=== PATIENT | female | born 1960 | race Caucasian/White ===

== ENCOUNTER → 2020-07-26 | Outpatient (CLI) | payer OTHER | LOC: M.CT 08:58 | PROVIDERS: ATTEND Family Medicine | DX: R63.4 Abnormal weight loss (principal); R73.03 Prediabetes; R80.9 Proteinuria, unspecified; N39.0 Urinary tract infection, site not specified; G35 Multiple sclerosis; Z87.891 Personal history of nicotine dependence; Z85.820 Personal history of malignant melanoma of skin; Z68.29 Body mass index [BMI] 29.0-29.9, adult ==

== ENCOUNTER 2020-08-17 18:52 | Inpatient (IN) | payer OTHER ==
[2020-08-17] VITALS (9 sets, daily range): BP systolic 110–143; BP diastolic 67–94
[~2020-08-17] VITALS: Ht 165.1 cm; Wt 74.4 kg
[2020-08-17] MEDS ORDERED: LIPITOR 20 MG T20 M1 PO (19:02)
[2020-08-17] MEDS ORDERED: VITAMIN D21250 MCG PO (19:03)
[2020-08-17 19:20] LABS: ABSOLUTE BASOPHILS 0.1 thou/uL (0.0-0.2); ABSOLUTE EOSINOPHILS 0.3 thou/uL (0.0-0.7); ABSOLUTE LYMPHOCYTES 2.5 thou/uL (0.8-5.3); ABSOLUTE MONOCYTES 0.5 thou/uL (0.0-1.2); ABSOLUTE NEUTROPHILS 4.6 thou/uL (1.6-8.1); BASOPHILS 1.2 %; EOSINOPHILS 3.6 %; HEMATOCRIT 43.4 % (37.0-47.0); HEMOGLOBIN 14.8 gm/dL (12.0-15.0); LYMPHOCYTES 31.4 %; MCH 29.2 pg (26.0-34.0); MCHC 34.1 g/dL (28.0-37.0); MCV 85.6 fL (80.0-100.0); MONOCYTES 6.7 %; MPV 10.1 fl. (7.2-11.1); NUCLEATED RBCS 0 /100WBC; PLATELET COUNT* 153 thou/uL (150-400); POLYS 57.1 %; RBC 5.07 mil/uL (4.20-5.00); RDW-CV 13.9 % (10.5-14.5)
[2020-08-17 19:29] LABS: CREATININE 0.9 mg/dL (0.6-1.3); POTASSIUM 3.8 mmol/L (3.5-5.1)
[2020-08-17 19:31] LABS: PROTIME 10.7 Seconds (9.20-11.50)
[2020-08-17 19:38] LABS: ALBUMIN 3.6 g/dL (3.4-5.0); MAGNESIUM 2.2 mg/dL (1.8-2.4); TOTAL BILIRUBIN 0.4 mg/dL (<0.1-1.0); TOTAL PROTEIN 6.8 g/dL (6.4-8.2)
[2020-08-18] VITALS (25 sets, daily range): BP systolic 88–123; BP diastolic 43–70
[2020-08-18 05:36] LABS: HEMATOCRIT 43.1 % (37.0-47.0); HEMOGLOBIN 14.6 gm/dL (12.0-15.0); MCH 29.1 pg (26.0-34.0); MCHC 33.9 g/dL (28.0-37.0); MPV 10.3 fl. (7.2-11.1); RBC 5.02 mil/uL (4.20-5.00); RDW-CV 14.2 % (10.5-14.5); WBC 7.2 thou/uL (4.0-11.0)
[2020-08-18 05:45] LABS: ALBUMIN 3.3 g/dL (3.4-5.0); ALKALINE PHOSPHATASE 57 U/L (46-116); ANION GAP 8 mmol/L (7-16); BUN 9 mg/dL (7-18); CHLORIDE 105 mmol/L (98-107); CHOLESTEROL 201 mg/dL (<200); CO2 26 mmol/L (21-32); CREATININE 0.9 mg/dL (0.6-1.3); GLUCOSE 175 mg/dL (70-99); HDL CHOLESTEROL 43 mg/dL (>40); LDL CHOLESTEROL 137 mg/dL (<100); POTASSIUM 4.3 mmol/L (3.5-5.1); SGOT 44 U/L (15-37); SGPT 7 U/L (30-65); SODIUM 139 mmol/L (136-145); TC:HDL 4.7 Ratio (Not establshd); TOTAL BILIRUBIN 0.3 mg/dL (<0.1-1.0); TOTAL PROTEIN 6.6 g/dL (6.4-8.2); TRIGLYCERIDE 108 mg/dL (<150); VLDL 22 mg/dL (<40)
[2020-08-18 06:01] LABS: URINE BILIRUBIN NEGATIVE (Negative); URINE BLOOD NEGATIVE (Negative); URINE CLARITY CLEAR; URINE COLOR YELLOW; URINE GLUCOSE-RANDOM NEGATIVE (Negative); URINE KETONES NEGATIVE (Negative); URINE LEUKOCYTES-REFLEX NEGATIVE (Negative); URINE NITRITE-REFLEX NEGATIVE (Negative); URINE PROTEIN NEGATIVE (Negative); URINE SPECIFIC GRAVITY <= 1.005 (1.005-1.030); URINE UROBILINOGEN 0.2 E.U./dl (0.2-1.0)
[2020-08-18 06:08] LABS: SERUM ASSESSMENT CLEAR
--- NOTE | 2020-08-18 13:30 | 2DMMODE ---
[place] [address] 2 D/M-MODE ECHOCARDIOGRAM Name: MIN DOS SANTOS Room: [address] ADM IN .R.#: [id number] Admission: 08/18/20 Attend Phys: Federico Melgoza Discharge: Date of : 56 Date of Service: 08/18/20 1330 Report #: [id number] THIS REPORT FOR: cc: Tia De La Vega Maggie M. DO Holkins, John M. MD [facility] ~ APPROVED REPORT Study performed: 08/18/2020 09:17:48 EXAM: Comprehensive 2D, Doppler, and color-flow Echocardiogram Patient Location: In-Patient Room #: 008 Status: routine BSA: 1.82 HR: 52 bpm BP: 123/70 mmHg Rhythm: NSR Other Information Study Quality: Good Indications Acute IA 2D Dimensions IVSd: 6.19 (7-11mm) LVOT Diam: 18.22 (18-24mm) LVDd: 48.40 mm PWd: 6.80 (7-11mm) Ascending Ao: 29.41 (22-36mm) LVDs: 28.51 (25-40mm) Aortic Root: 28.53 mm Volumes Left Atrial Volume (Systole) LA ESV Index: 22.90 mL/m2 Aortic Valve AoV Peak Gt.: 1.38 m/s AO Peak Gr.: 7.56 mmHg LVOT Max P.41 mmHg AO Mean Gr.: 4.22 mmHg LVOT Mean P.49 mmHg LVOT Max V: 0.92 m/s AO V2 VTI: 29.07 cm LVOT Mean V: 0.54 m/s LILO (VTI): 1.95 cm2 LVOT V1 VTI: 21.72 [place] [address] 2 D/M-MODE ECHOCARDIOGRAM Name: MIN DOS SANTOS Room: [address] IN .R.#: [id number] Admission: 08/18/20 Attend Phys: Federico Melgoza Discharge: Date of : 56 Date of Service: 08/18/20 1330 Report #: [id number] Mitral Valve E/A Ratio: 1.17 MV Decel. Time: 238.27 ms MV E Max Gt.: 0.72 m/s MV PHT: 69.10 ms MVA (PHT): 3.18 cm2 TDI E/Lateral E': 7.20 E/Medial E': 9.00 Medial E' Gt.: 0.08 m/s Lateral E' Gt.: 0.10 m/s Pulmonary Valve PV Peak Gt.: 0.69 m/s PV Peak Gr.: 1.90 mmHg Tricuspid Valve RAP Estimate: 5.00 mmHg TR Peak Gr.: 17.81 mmHg RVSP: 22.00 mmHg PA Pressure: 22.00 mmHg Left Ventricle The left ventricle is normal size. There is normal LV segmental wall motion. There is normal left ventricular wall thickness. Left ventricular systolic function is normal. The left ventricular ejection fraction is within the normal range. LVEF is 60%. The left ventricular diastolic function is normal. Right Ventricle The right ventricle is normal size. The right ventricular systolic function is normal. Atria The left atrium size is normal. The right atrium size is normal. Aortic Valve Mild aortic valve sclerosis. No aortic regurgitation is present. No hemodynamically significant valvular aortic stenosis. Mitral Valve The mitral valve is normal in structure. Mild mitral regurgitation. No evidence of mitral valve stenosis. Tricuspid Valve The tricuspid valve is normal in structure. Mild tricuspid regurgitation. [place] [address] 2 D/M-MODE ECHOCARDIOGRAM Name: MIN DOS SANTOS Room: [address] IN [facility]#: [id number] Admission: 08/18/20 Attend Phys: Federico Melgoza Discharge: Date of : 56 Date of Service: 08/18/20 1330 Report #: [id number] Pulmonic Valve The pulmonary valve is normal in structure. There is no pulmonic valvular regurgitation. Great Vessels The aortic root is normal in size. IVC is normal in size and collapses >50% with inspiration. Pericardium There is no pericardial effusion. <Conclusion> The left ventricle is normal size. There is normal left ventricular wall thickness. Left ventricular systolic function is normal. The left ventricular ejection fraction is within the normal range. LVEF is 60%. The left ventricular diastolic function is normal. The right ventricle is normal size. The left atrium size is normal. Mild aortic valve sclerosis. No aortic regurgitation is present. No hemodynamically significant valvular aortic stenosis. The mitral valve is normal in structure. Mild mitral regurgitation. The tricuspid valve is normal in structure. Mild tricuspid regurgitation. No pulmonary hypertension. IVC is normal in size and collapses >50% with inspiration. There is no pericardial effusion. There is normal LV segmental wall motion. <ELECTRONICALLY SIGNED> By: Den Leal MD, FACC 08/18/20 1330 29 29 Den Leal MD, FACC /INF
--- NOTE | 2020-08-18 14:45 | CARD ---
[address] [address] CARDIAC CATH REPORT Name: MIN DOS SANTOS Room: [address] IN ..#: [id number] Admission: 08/18/20 Attend Phys: Den Leal MD, Discharge: Date of : 56 Report #: [id number] THIS REPORT FOR: cc: Tia De La Vega Maggie M. DO Holkins,Den De Souza MD [facility] ~ APPROVED REPORT Study performed: 08/17/2020 19:31:34 Patient Details Patient Status: ED Room #: The patient is a 60 year-old female Event Personnel Chay Miguel RTR Monitor, Mely Marquez RN RN, Christa Martino RTR Scrub, Den Leal Newscast Producer Procedures Performed Left Heart Cath w/or w/o Coronaries [id number] [facility] Place w/wo Plasty Single RCA [id number] Hemostasis w/ Angioseal Indication STEMI (>0 to less than or equal to 6 hours) Risk Factors Hypercholesterolemia, Tobacco History () Admission/Lab Medications/Medications given during procedure Benadryl IV 50 mg, Solumedrol IV 125 mg, Lidocaine Subcut 20 ml, Fentanyl IV 25 mcg, Midazolam (Versed) IV 2 mg, Angiomax IV 11 ml, Angiomax IV 26 ml per hr, Atropine IV 0.5 mg Procedure Narrative The patient was brought emergently to the Cardiac Catheterization Laboratory and was prepped and draped in a sterile manner. The right femoral was infiltrated with 2% Lidocaine subcutaneous anesthesia. IV conscious sedation was used throughout procedure with appropriate monitoring and was performed in the presence of a registered nurse who was an independent trained observer other than the physician performing the procedure. A [place] 6 FR sheath was inserted into the right femoral artery. Coronary angiography was performed using coronary diagnostic catheters. The right coronary system was accessed and visualized with a Diagnostic JR4 6Fr catheter[place] [address] CARDIAC CATH REPORT Name: MIN DOS SANTOS Room: [address] IN ..#: [id number] Admission: 08/18/20 Attend Phys: Den Leal MD, Discharge: Date of : 56 Report #: [id number] system was accessed and visualized with a Diagnostic JL3.5 5Fr catheter. The left ventricle was accessed and visualized with a Diagnostic Pigtail 6Fr catheter. Left ventricular/Aortic Valve gradient assessed via catheter pullback. Pre-demployment femoral angiogram was performed . Closure device was deployed with a 6 Fr Angioseal. The patient tolerated the procedure well and there were no complications associated with the procedure. There was no hematoma. Intraoperative Conscious Sedation Sedation start time: 1954 Case end Time: 2054 Fentanyl 25 mcg Versed 2 mg Fluoro Time: 18.0 minutes Dose: DAP 198536 cGycm2 1553.97 mGy Contrast Type and Amount: Visipaque 230 ml Diagnostic Cath Left Main 0% narrowing LAD 80% tubular proximal LAD stenosis with 50% mid vessel narrowing Circumflex 0% narrowing Right Coronary 75% ostial proximal LAD stenosis with 95% mid vessel stenosis and AYLEEN I flow to the distal right coronary artery; there were uaxb-ad-inspz collaterals filling the distal right coronary system Left Ventriculography Left Ventriculography was not performed. Hemodynamics The aortic pressure is 149/68 mmHg with a mean of 99 mmHg. The left ventricular pressure is 108/1 mmHg with a mean of mmHg. The left ventricular end diastolic pressure is 15 mmHg. There was no gradient across the aortic valve upon pullback. PCI Technique Lesion Anticoagulation was achieved with Angiomax. Percutaneous coronary intervention was performed on the mid right coronary artery. The lesion stenosis prior to intervention was 95% with AYLEEN 1 flow. A 6Fr JR 4.0 SH Guide Catheter was used to engage the Right ostium. A IG: BMW 190cm Interventional Guidewire was used [place] [address] CARDIAC CATH REPORT Name: MIN DOS SANTOS Room: [address] IN M.R.#: [id number] Admission: 08/18/20 Attend Phys: Den Leal MD, Discharge: Date of : 56 Report #: [id number] BALLOON DILATION A Balloon catheter Trek RX 2.5 X 15 was inserted and inflated up to 12.00atm for 10seconds. Additional Inflation: 12.00atm for 19seconds. Additional Inflation: 12.00atm for 31seconds. STENT DEPLOYMENT A drug-eluting stent Dario RX Stent 2.5X34mm was inserted and inflated up to 14.00atm for 12seconds. Additional Inflation: 15.00atm for 13seconds. POST STENT DEPLOYMENT BALLOON DILATION A Balloon catheter NC Trek RX 2.75 X 12 was inserted and inflated up to 14.00atm for 10seconds. Additional Inflation: 14.00atm for 8seconds. Final angiography reveals 10 % stenosis with AYLEEN 3 flow. PCI Technique Lesion 2 Percutaneous Coronary Intervention was performed on the proximal right coronary artery. The lesion stenosis prior to intervention was 75% with AYLEEN 3 flow. A 6Fr JR 4.0 SH Guide Catheter was used to engage the Right ostium. A IG: BMW 190cm Interventional Guidewire was used to cross the lesion. Balloon Dilation A Balloon catheter NC Trek RX 2.75 X 12 was inserted and inflated up to 12.00atm for 10seconds. Additional Inflation: 12.00atm for 7seconds. Stent Deployment A drug-eluting stent Dario RX Stent 3.0X22mm was inserted and inflated up to 10.00atm for 14seconds. Additional Inflation: 12.00atm for 10seconds. Post Stent Deployment Balloon Dilation A Balloon catheter NC Trek RX 3.0 X 8 was inserted and inflated up to 14.00atm for 9seconds. Additional Inflation: 12.00atm for 7seconds. Final angiography reveals 0 % stenosis with AYLEEN 3 flow. Conclusion Significant multivessel coronary artery disease characterized by the following: [address] [address] CARDIAC CATH REPORT Name: MIN DOS SANTOS Room: [address] IN M.R.#: [id number] Admission: 08/18/20 Attend Phys: Den Leal MD, Discharge: Date of : 56 Report #: [id number] 80% tubular proximal LAD stenosis B 75% ostial proximal right coronary with 95% mid vessel stenosis and AYLEEN I flow to the distal right coronary artery; there were kizm-is-ojmao collaterals filling a portion of the distal right coronary system 2. Normal left-sided hemodynamic study 3. Successful PCI with deployment of drug-eluting stents at the sites of 95% mid right coronary stenosis and 75% ostial proximal right coronary stenosis with 10 and 0% residual narrowings and AYLEEN-3 flow to the distal circulation Recommendations Smoking Cessation Cardiac Risk Reduction Program Aggressive Medical Therapy Medications Administered Prasugrel Diagnostic Cath Approved by: Den Leal MD Date/Time: 08/18/2020 14:43:42 <ELECTRONICALLY SIGNED> By: Den Leal MD, [facility] 08/18/20 1445 1445 1445Den Leal MD, FAC /INF
--- NOTE | 2020-08-18 16:38 | EKG ---
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[place] : 1960 Requested By: Soo Culp Order Number: [id number] MD: Den Leal Measurements Intervals [place] Rate: 68 P: 24 CO: 144 QRS: 57 QRSD: 78 T: 127 QT: 359 QTc: 382 Interpretive Statements Sinus rhythm Abnormal R-wave progression, early transition Inferior ST segment elevation of right precordial ST segment depression; this suggests acute inferoposterior injury No previous ECG available for comparison Electronically Signed On 08-18-2020 16:38:10 CDT by Den Leal [email or web address] <ELECTRONICALLY SIGNED> By: Den Leal MD, FACC 08/18/20 1638 56 56 Den Leal MD, FAC /EPI
--- NOTE | 2020-08-18 16:40 | EKG ---
[place] [address] ELECTROCARDIOGRAM REPORT Name: MIN DOS SANTOS Room: [address] ADM IN M.R.#: [id number] Admission: 08/18/20 Attend Phys: Federico Melgoza Discharge: Date of : 56 Date of Service: 08/17/20 2350 Report #: [id number] THIS REPORT FOR: //name// Test Date: 2020-08-17 Test Time: 23:50:54 Pat Name: MIN DOS SANTOS Department: Room: [address] Gender: F [place] Drill Operator: LILLIANA : 1960 Requested By: Den Leal Order Number: [id number] Edmundo MD: Den Leal Measurements Intervals [place] Rate: 57 P: 61 [place]: 152 QRS: 45 QRSD: 94 T: 49 QT: 457 QTc: 445 Interpretive Statements Sinus rhythm Compared to ECG 08/17/2020 18:57:25 Evidence for inferoposterior injury or ischemia has resolved Electronically Signed On 08-18-2020 16:40:38 CDT by Den Leal [email or web address] <ELECTRONICALLY SIGNED> By: Den Leal MD, FACC 08/18/20 1640 2350 2350 Den Leal MD, [facility] /EPI
--- NOTE | 2020-08-18 16:44 | EKG ---
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
[2020-08-19] VITALS (12 sets, daily range): BP systolic 88–122; BP diastolic 48–65
[2020-08-19] MEDS ORDERED: LIPITOR 40 MG T40 M1 PO (11:00)
[2020-08-19] MEDS ORDERED: EFFIENT10 MG PO (11:00)
--- NOTE | 2020-08-19 11:12 | H ---
[place] [address] HISTORY AND PHYSICAL Name: MIN DOS SANTOS Room: [address] ADM IN M.R.#: [id number] Admission: 08/18/20 Attend Phys: Den Leal MD, Discharge: Date of : 56 Report #: [id number] THIS REPORT FOR: cc: Tia De La Vega Maggie M. DO Holkins, John M. MD [facility] ~ DOC #: [id number] Den Leal MD [facility] ADMIT DATE: 08/17/2020 HISTORY OF PRESENT ILLNESS: The patient is a very pleasant 60-year-old female with hypercholesterolemia and tobacco habituation. She presented tonight after chest pain that comes in slightly before 06:00. She continued to have chest pain in the [place] and electrocardiogram suggested acute inferoposterior injury. Risk factors for coronary artery disease including tobacco habituation and hypercholesterolemia. MEDICATIONS: Her only medicines are Lipitor an uncertain dosage and vitamin D. PAST MEDICAL HISTORY: Remarkable for hyperlipidemia. FAMILY HISTORY: Remarkable for atrial fibrillation and requirement for a pacemaker in her mother. SOCIAL HISTORY: She smokes a moderate numbers of cigarettes per day. REVIEW OF SYSTEMS: Unremarkable with the exception of mild arthritic complaints. PHYSICAL EXAMINATION: GENERAL: Demonstrates an acutely distressed middle-aged female. VITAL SIGNS: Blood pressure 120/70, pulse rate 74 and respirations 18 per minute. NECK: Jugular venous pressure normal. CHEST: Clear. CARDIAC: Normal first and second heart sounds without rubs, murmurs or gallops. ABDOMEN: Soft and nontender. EXTREMITIES: Without edema with intact femoral, pedal and radial pulses. DIAGNOSTIC DATA: EKG revealed acute inferoposterior ST segment elevation myocardial infarction. IMPRESSION: 1. Acute inferior posterior [place] [address] HISTORY AND PHYSICAL Name: MIN DOS SANTOS Room: [address] IN [facility]#: [id number] Admission: 08/18/20 Attend Phys: Den Leal MD, Discharge: Date of : 56 Report #: [id number] 2. Hypercholesterolemia. 3. Tobacco habituation. The patient underwent cardiac catheterization that study demonstrated total right coronary occlusion with some left to right collaterals filling the distal right. There was 75% calcified proximal-mid tubular LAD stenosis. There were no significant left main or circumflex narrowing. In this context, I elected to proceed with percutaneous coronary intervention, deploying 2 drug-eluting stents, one in the mid and the other in the proximal right coronary artery with 10% residual narrowing and AYLEEN 3 flow of the distal vessel. The patient did well post-procedurally and was placed on dual antiplatelet therapy and continued on Angiomax for 3 hours post-procedure. She was transferred to the ICU in stable condition. CRITICAL CARE TIME: 40 minutes from 2029 to 0 on 08/17/2020. Den Leal MD [facility]/T <ELECTRONICALLY SIGNED> By: Den Leal MD, [facility] 08/19/20 1112 08 27Den Leal MD, [facility] /nt
--- NOTE | 2020-08-28 10:39 | D ---
[address] [address] DISCHARGE SUMMARY Name: MIN DOS SANTOS Room: [address] IN M.R.#: [id number] Admission: 08/18/20 Attend Phys: Den Leal MD, Discharge: 08/19/20 Date of : 56 Report #: [id number] THIS REPORT FOR: cc: Tia De La Vega Maggie M. DO Holkins, John M. MD [facility] ~ DOC #: [id number] Den Leal MD [facility] DATE OF DISCHARGE: 08/19/2020 FINAL DISCHARGE DIAGNOSES: 1. Acute inferoposterior ST segment elevation myocardial infarction. 2. Coronary artery disease. 3. Hypercholesterolemia. 4. Tobacco habituation. PROCEDURES: 08/17/2000 -- left heart catheterization, selective coronary arteriography, and acute PCI to a totally occluded mid right coronary artery. HOSPITAL COURSE: The patient is a very pleasant 60-year-old female with hypercholesterolemia and tobacco habituation. On evening, she developed central chest pain which was quite severe. She sought assistance in the [facility]. She was noted to have evidence for acute inferoposterior injury. I was asked to see the patient and her pain persisted. EKG indeed reflected acute inferoposterior ST-segment elevation myocardial infarction. PAST MEDICAL HISTORY: Remarkable for tobacco habituation, hypercholesterolemia. MEDICATIONS: The only medication she takes a cardiac related is atorvastatin 20 mg daily, taken intermittently. SOCIAL HISTORY: She has continued to smoke a moderate number, poorly quantitated, cigarettes daily. In this context, I recommend a V/Q catheterization, which was undertaken on 08/17. That study demonstrated total mid right coronary occlusion was 75% ostial-proximal right coronary stenosis. There was 80% tubular stenosis in the proximal LAD. In this setting, I performed acute PCI, deploying one drug-eluting stent in the mid right coronary artery, one in the proximal right coronary artery with a 10% residual narrowing, AYLEEN-3 flow in the distal vessel. Troponin ami only minimally to 7 as there were some bflr-is-zskod collateral filling of the distal right at the time of catheterization[place] [address] DISCHARGE SUMMARY Name: MIN DOS SANTOS Room: [address] IN [facility].#: [id number] Admission: 08/18/20 Attend Phys: Den Leal MD, Discharge: 08/19/20 Date of : 56 Report #: [id number] procedure demonstrated normal LV function with ejection fraction of 60% without segmental wall motion abnormalities. She did well post-procedurally and ambulated without difficulty. There was good hemostasis at the right femoral site of catheterization. The patient had mild bradycardia and mild hypotension, and KASANDRA inhibition and beta blockade had to be held in that context. She was placed on a higher dose of statin and placed on single antiplatelet therapy with prasugrel as she has demonstrated both ASPIRIN AND PLAVIX ALLERGY in the past. She ambulated without difficulty and was discharged home on the following medications: Prasugrel 10 mg daily, atorvastatin 40 mg daily, vitamin D 1250 mcg weekly. We talked at length about the importance of cigarette smoking cessation. She is scheduled to return to see my nurse practitioner on 08/24 with consideration of subsequent PCI to the LAD with respect to the aforementioned moderately severe proximal LAD lesion noted above. Therefore, the patient is discharged home in stable condition on the aforementioned medications with followup as described above. Dne Leal MD [facility] <ELECTRONICALLY SIGNED> By: Den Leal MD, [facility] 08/28/20 1039 1007 [id number] Leal MD, [facility] /nt
== END 2020-08-19 11:38 | disposition home or self-care (01) | DRG 247 ==
LOC: M.ERS 18:52 → M.ICU 20:59
PROVIDERS: Emergency Medicine; ADMIT Internal Medicine; ATTEND Internal Medicine
PROC: 4A023N7 Measurement of Cardiac Sampling and Pressure, Left Heart, Percutaneous Approach (ICD-10-PCS; principal; 2020-08-17)
PROC: B2111ZZ Fluoroscopy of Multiple Coronary Arteries using Low Osmolar Contrast (ICD-10-PCS; principal; 2020-08-17)
PROC: 027135Z Dilation of Coronary Artery, Two Arteries with Two Drug-eluting Intraluminal Devices, Percutaneous Approach (ICD-10-PCS; principal; 2020-08-17)
DX: I21.11 ST elevation (STEMI) myocardial infarction involving right coronary artery (principal); E11.9 Type 2 diabetes mellitus without complications; E78.5 Hyperlipidemia, unspecified; E78.00 Pure hypercholesterolemia, unspecified; I25.10 Atherosclerotic heart disease of native coronary artery without angina pectoris; I95.9 Hypotension, unspecified; F17.210 Nicotine dependence, cigarettes, uncomplicated; Z20.822 Contact with and (suspected) exposure to COVID-19; Z88.8 Allergy status to other drugs, medicaments and biological substances; Z88.1 Allergy status to other antibiotic agents; Z91.041 Radiographic dye allergy status

== ENCOUNTER 2020-09-01 09:09 | Observation (INO) | payer OTHER ==
[2020-09-01] VITALS (19 sets, daily range): BP systolic 108–142; BP diastolic 53–80
[~2020-09-01] VITALS: Ht 165.1 cm; Wt 77.9 kg
--- NOTE | ~2020-09-01 | D ---
[address] [address] DISCHARGE SUMMARY Name: MIN DOS SANTOS Room: [address] M.R.#: [id number] Admission: 09/01/20 Attend Phys: Den Leal MD, Discharge: Date of : 56 Report #: [id number] THIS REPORT FOR: cc: Tia De La Vega Maggie M. DO Holkins, John M. MD [facility] ~ DOC #: [id number] Den Leal MD [facility] DATE OF DISCHARGE: 09/02/2020 FINAL DISCHARGE DIAGNOSES: 1. Unstable angina. 2. Status post recent anterior wall myocardial infarction. 3. Complex coronary artery disease. 4. Hyperlipidemia. 5. History of tobacco use. 6. ASPIRIN AND PLAVIX ALLERGY. PROCEDURES: 09/01/2020 -- left heart catheterization, selective coronary arteriography, and percutaneous coronary intervention with deployment of drug-eluting stents in the proximal and mid LAD. HOSPITAL COURSE: The patient is a very pleasant 60-year-old female who presented approximately 2 weeks ago with acute inferior wall myocardial infarction interrupted by PCI to the proximal and mid right coronary artery with no residual narrowing. The patient did well post-procedurally. She was discharged to home. At the time of the initial catheterization, she was noted to have significant LAD disease, which was not approached in the acute setting. Subsequent to discharge, she experienced some discomfort, but nothing as bad as that associated with the acute myocardial infarction. She has hyperlipidemia and has a history of prior cigarette smoking. In this context, I performed recatheterization on 09/01/2020 which revealed widely patent proximal mid right coronary stents. There was 80% tubular proximal and 80% focal mid LAD stenosis. I performed PCI, deploying two sequential drug-eluting stents, both [place] in the proximal LAD and one 2.0 x 8 mm Dario drug-eluting stent in the mid LAD with 10 and 0% residual narrowings and AYLEEN 3 flow to the distal vessel. The patient did well post-procedurally and there was no chest pain after the procedure. Troponin did not rise and remained 0.06. Additional lab revealed a sodium 141, potassium 3.9, BUN 11, creatinine 0.8. White blood cell count 17,100, hemoglobin 12.7, hematocrit 37.0, [place] [address] DISCHARGE SUMMARY Name: MIN DOS SANTOS [address]: [address]#: [id number] Admission: 09/01/20 Attend Phys: Den Leal MD, Discharge: Date of : 56 Report #: [id number] 153,000. EKG revealed a sinus rhythm, minor inferior ST-T abnormalities, which were present after the prior inferior infarct with no additional changes. The patient ambulated in the hallways without difficulty and there was good hemostasis at the right femoral site of catheterization. She was discharged home on the following medications: Prasugrel 10 mg daily with 30 mg dose given periprocedurally, atorvastatin 40 mg daily and vitamin D2 1250 mcg weekly. I will plan to see her in the office the week of 09/24/2020. Therefore, the patient is discharged home in stable condition on the aforementioned medications with followup as iterated above. Den Leal MD [facility]/GAU By: [id number] Leal MD, [facility] /nt
[~2020-09-01 09:09] MED LIST: EFFIENT10 MG PO; LIPITOR 20 MG T20 M1 PO; LIPITOR 40 MG T40 M1 PO; VITAMIN D21250 MCG PO
[2020-09-01 10:03] LABS: HEMATOCRIT 43.2 % (37.0-47.0); HEMOGLOBIN 14.6 gm/dL (12.0-15.0); MCH 28.8 pg (26.0-34.0); MCHC 33.8 g/dL (28.0-37.0); MCV 85.4 fL (80.0-100.0); MPV 10.3 fl. (7.2-11.1); RBC 5.05 mil/uL (4.20-5.00); RDW-CV 14.2 % (10.5-14.5); WBC 8.9 thou/uL (4.0-11.0)
[2020-09-01 10:11] LABS: ANION GAP 6 mmol/L (7-16); BUN 14 mg/dL (7-18); CALCIUM 9.3 mg/dL (8.5-10.1); CHLORIDE 102 mmol/L (98-107); CO2 29 mmol/L (21-32); GLUCOSE 228 mg/dL (70-99); POTASSIUM 4.6 mmol/L (3.5-5.1); SODIUM 137 mmol/L (136-145)
[2020-09-01 10:13] LABS: APTT 23.9 Seconds (25.0-31.3); PROTIME 10.3 Seconds (9.20-11.50)
[2020-09-01 10:15] LABS: ALBUMIN 3.5 g/dL (3.4-5.0); ALKALINE PHOSPHATASE 61 U/L (46-116); CHOLESTEROL 172 mg/dL (<200); HDL CHOLESTEROL 51 mg/dL (>40); LDL CHOLESTEROL 100 mg/dL (<100); SGOT 11 U/L (15-37); SGPT 17 U/L (30-65); TC:HDL 3.4 Ratio (Not establshd); TOTAL BILIRUBIN 0.5 mg/dL (<0.1-1.0); TOTAL PROTEIN 7.1 g/dL (6.4-8.2); TRIGLYCERIDE 106 mg/dL (<150); VLDL 21 mg/dL (<40)
[2020-09-01 10:16] LABS: SERUM ASSESSMENT Clear
--- NOTE | 2020-09-01 11:02 | EKG ---
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: : 1960 Requested By: Den Leal Order Number: [id number] Edmundo MD: Den Leal Measurements Intervals [place] Rate: 71 P: 26 ND: 145 QRS: 18 QRSD: 80 T: -11 QT: 401 QTc: 436 Interpretive Statements Sinus rhythm Nonspecific T abnormalities, inferior leads Compared to ECG 08/18/2020 08:23:20 T-wave abnormality now present Electronically Signed On 09-01-2020 11:02:30 CDT by Den Leal [email or web address] <ELECTRONICALLY SIGNED> By: Den Leal MD, [facility] 09/01/20 1102 1013 1013 Den Leal MD, [facility] /EPI
--- NOTE | 2020-09-01 13:31 | CARD ---
[address] [address] CARDIAC CATH REPORT Name: MIN DOS SANTOS Room: [address] M.R.#: [id number] Admission: 09/01/20 Attend Phys: Den Leal MD, Discharge: Date of : 56 Report #: [id number] THIS REPORT FOR: cc: Tia De La Vega Maggie M. DO Holkins, John M. MD [facility] ~ APPROVED REPORT Study performed: 09/01/2020 10:43:31 Patient Details Patient Status: Out-Patient Room #: The patient is a 60 year-old female Event Personnel Den Leal Post Doctoral Fellow, Carolynn White RN Veneer Sample Maker, Dominique Hernandez RTR Monitor, Chay Miguel RTR Scrub Procedures Performed Art Access - R femoral artery , Left Heart Cath w/or w/o Coronaries LHC , PEREZ Place w/wo Plasty Single LAD , Hemostasis w/ Angioseal Indication Unstable angina Risk Factors Hypercholesterolemia Previous Procedures/Diagnoses Previous PCI, Previous MA Admission/Lab Medications/Medications given during procedure Angiomax IV 11 ml, Angiomax Drip IV 25.75 ml per hr, Nitroglycerin IC 200 mcg, Angiomax IV 3 ml, Effient PO 30 mg Procedure Narrative The patient was brought electively to the Cardiac Catheterization Laboratory and was prepped and draped in a sterile manner. The right femoral was infiltrated with 2% Lidocaine subcutaneous anesthesia. IV conscious sedation was used throughout procedure with appropriate monitoring and was performed in the presence of a registered nurse who was an independent trained [place] [address] CARDIAC CATH REPORT Name: MIN DOS SANTOS Room: [address] Trudi Kelly#: [id number] Admission: 09/01/20 Attend Phys: Den Leal MD, Discharge: Date of : 56 Report #: [id number] performing the procedure. A 6fr Ultimum sheath was inserted into the right femoral artery. Coronary angiography was performed using coronary diagnostic catheters. The right coronary system was accessed and visualized with a 6F JR4 catheter. The left coronary system was accessed and visualized with a 6F JL4 catheter. The left ventricle was accessed and visualized with a 6F Pigtail catheter. Left ventricular/Aortic Valve gradient assessed via catheter pullback. Pre-demployment femoral angiogram was performed . Closure device was deployed with a 6 Fr Angioseal STS. The patient tolerated the procedure well and there were no complications associated with the procedure. A hematoma occurred. Manual pressure was held post procedure on right groin, due to small right femoral hematoma. Intraoperative Conscious Sedation Sedation start time: 11:06 Case end Time: 12:08 Fentanyl 25 mcg Versed 3 mg Fluoro Time: 12.5 minutes Dose: DAP [id number] cGycm2 1482 mGy Contrast Type and Amount: Visipaque 290 ml Diagnostic Cath Left Main 0% narrowing LAD 80% tubular proximal stenosis with 80% focal mid vessel stenosis Circumflex 0% narrowing Right Coronary Dominant vessel with widely patent proximal and mid vessel stents with 20% distal narrowing Left Ventriculography Left Ventriculography was not performed. Hemodynamics The aortic pressure is 123/60 mmHg with a mean of 87 mmHg. The left ventricular pressure is 124/-5 mmHg with a mean of mmHg. The left ventricular end diastolic pressure is 8 mmHg. There was no gradient across the aortic valve upon pullback. PCI Technique Lesion Anticoagulation was achieved with Angiomax. Patient was preloaded with Angiomax IV 11 ml. Percutaneous coronary intervention was performed on the proximal left anterior descending artery segment. The lesion stenosis prior to intervention was 80% with AYLEEN 3 [place] [address] CARDIAC CATH REPORT Name: MIN DOS SANTOS Room: [address] Leticia#: [id number] Admission: 09/01/20 Attend Phys: Den Leal MD, Discharge: Date of : 56 Report #: [id number] 6FR XB 3 SH Guide Catheter was used to engage the lm ostium. A ProwaterFlex 180CM Interventional Guidewire was used to cross the lesion. BALLOON DILATION A Balloon catheter Trek RX 2.25 X 15 was inserted and inflated up to 12.00atm for 11seconds. STENT DEPLOYMENT A drug-eluting stent [place] RX Stent 2.86V57dn was inserted and inflated up to 12.00atm for 12seconds. Additional Inflation: 15.00atm for 8seconds. A drug-eluting stent Dario RX Stent 2.0 x 8mm was inserted and inflated up to 15 brenda for 5 seconds; 16 brenda for 7 seconds. POST STENT DEPLOYMENT BALLOON DILATION A Balloon catheter [place] Trek RX 2.5 X 12 was inserted and inflated up to 14.00atm for 7seconds. Additional Inflation: 15.00atm for 8seconds. Additional Inflation: 16.00atm for 9seconds. Final angiography reveals 10 % stenosis with AYLEEN 3 flow. PCI Technique Lesion 2 Percutaneous Coronary Intervention was performed on the mid left anterior descending artery segment. The lesion stenosis prior to intervention was 80% with AYLEEN 3 flow. Stent Deployment A drug-eluting stent Dario RX Stent 2.0X8mm was inserted and inflated up to 12.00atm for 11seconds. Additional Inflation: 12.00atm for 8seconds. Final angiography reveals 0 % stenosis with AYLEEN 3 flow. Conclusion 1. Significant coronary artery disease characterized by the following: A 80% tubular proximal LAD stenosis with 80% focal mid LAD stenosis B 0% narrowing of the left main and circumflex coronary arteries C dominant right coronary artery with widely [place] [address] CARDIAC CATH REPORT Name: MIN DOS SANTOS Room: [address] Trudi MKam#: [id number] Admission: 09/01/20 Attend Phys: Den Leal MD, Discharge: Date of : 56 Report #: [id number] vessel stents with 20% distal narrowing 2. Normal left-sided hemodynamic study 3. Successful PCI with deployment of sequential drug-eluting stents in the proximal LAD and a single drug-eluting stent in the mid LAD with 10 and 0% residual narrowings and AYLEEN-3 flow to the distal vessel Recommendations Cardiac Risk Reduction Program Aggressive Medical Therapy Medications Administered Prasugrel The patient is aspirin allergic. <ELECTRONICALLY SIGNED> By: Den Leal MD, FACC 09/01/20 1331 30 1331Den Leal MD, FACC /INF
--- NOTE | 2020-09-01 14:36 | EKG ---
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
--- NOTE | 2020-09-01 15:35 | NUR ---
ADMIT POST CATH TO 215 TO ROOM VIA BED TELEPHONE REPORT GIVEN PRIOR TO ARRIVAL PATIENT SEETTLED IN ROOM ORIENTED TO ROOM AND CALL LIGHT
--- NOTE | 2020-09-01 16:54 | NUR ---
After patient's cardiac cath, had a bit of a struggle keeping dressing clean and dry from patient's groin oozing. Patient initially felt as though she had a hematoma. Groin was painful to patient on inspection and palpation. Reduced hematoma. After another hour, groin started to give patient pain and there was a knot again. Light pressure held and it seemed as though the area in question "relaxed" under my fingers and patient had no pain. Reported to Dr. Leal will continue to monitor. No complaints of pain when transfer to floor.
[2020-09-02] VITALS: BP 100/54
[2020-09-02 04:30] VITALS: BP 103/59
--- NOTE | 2020-09-02 06:54 | NUR ---
ASSUMED PT CARE AT 1920. NURSING ASSESSMENT COMPLETED AT START OF SHIFT. 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 PT DENIES PAIN THIS SHIFT. RIGHT GROIN DRESSING CLEAN, DRY, AND INTACT. HOURLY ROUNDING COMPLETED. CALL LIGHT WITHIN REACH.
[2020-09-02 07:02] LABS: HEMOGLOBIN 12.7 gm/dL (12.0-15.0); MCH 28.7 pg (26.0-34.0); MCHC 34.4 g/dL (28.0-37.0); MCV 83.4 fL (80.0-100.0); MPV 10.4 fl. (7.2-11.1); RBC 4.43 mil/uL (4.20-5.00); WBC 17.1 thou/uL (4.0-11.0)
[2020-09-02 07:19] LABS: ALKALINE PHOSPHATASE 49 U/L (46-116); ANION GAP 10 mmol/L (7-16); BUN 11 mg/dL (7-18); CALCIUM 8.6 mg/dL (8.5-10.1); CHLORIDE 107 mmol/L (98-107); CO2 24 mmol/L (21-32); CREATININE 0.8 mg/dL (0.6-1.3); GLUCOSE 178 mg/dL (70-99); POTASSIUM 3.9 mmol/L (3.5-5.1); SGOT 6 U/L (15-37); SGPT 17 U/L (30-65); SODIUM 141 mmol/L (136-145); TOTAL BILIRUBIN 0.4 mg/dL (<0.1-1.0); TOTAL PROTEIN 5.9 g/dL (6.4-8.2); TROPONIN-I LEVEL <0.06 ng/mL (<0.06)
[2020-09-02 08:30] VITALS: BP 97/55
[2020-09-02 11:53] VITALS: BP 97/55
--- NOTE | 2020-09-02 11:58 | NUR ---
DR PARK GAVE PT CARD FOR FOLLOW UP APPOINTMENT.
--- NOTE | 2020-09-04 10:19 | EKG ---
[place] [address] ELECTROCARDIOGRAM REPORT Name: MIN DOS SANTOS Room: [address] M.R.#: [id number] Admission: 09/01/20 Attend Phys: Federico Melgoza Discharge: 09/02/20 Date of : 56 Date of Service: 09/02/20 0947 Report #: [id number] THIS REPORT FOR: //name// [facility] Test Date: 2020-09-02 Test Time: 09:47:20 Pat Name: MIN DOS SANTOS Department: Room: [facility] Gender: F Windows Administrator: CELIA : 1960 Requested By: Den Leal Order Number: [id number] Reading MD: Bob Marie Measurements Intervals [place] Rate: 83 P: 63 LA: 143 QRS: 15 QRSD: 105 T: -29 QT: 386 QTc: 454 Interpretive Statements Sinus rhythm Nonspecific T abnormalities, inferior leads Compared to ECG 09/01/2020 13:09:29 T-wave abnormality now present Electronically Signed On 09-04-2020 10:19:17 CDT by Bob Marie [email or web address] <ELECTRONICALLY SIGNED> By: Bob Marie MD, [facility] 09/04/20 1019 0947 0947 Bob Marie MD, [facility] /EPI
== END 2020-09-02 12:15 | disposition home or self-care (01) ==
LOC: M.CL 09:09 → M.TBA-CV 12:59 → M.2W 12:59
PROVIDERS: ADMIT Internal Medicine; ATTEND Internal Medicine
DX: I25.110 Atherosclerotic heart disease of native coronary artery with unstable angina pectoris (principal); I10 Essential (primary) hypertension; E78.5 Hyperlipidemia, unspecified; Z87.891 Personal history of nicotine dependence; Z79.899 Other long term (current) drug therapy; Z88.6 Allergy status to analgesic agent; Z88.9 Allergy status to unspecified drugs, medicaments and biological substances